=== PATIENT | female | born 1960 | race Caucasian/White ===

== ENCOUNTER 2018-10-09 15:02 | Emergency (ER) | payer OTHER ==
[2018-10-09] MEDS ORDERED: ASPIRIN 81 MG TABLET, CHEWABLE PO ONE (15:28)
--- NOTE | 2018-10-09 15:29 | ER Document Report ---
ED Medical Screen (RME) - General Chief Complaint: Arm Pain Stated Complaint: NECK PAIN Time Seen by Provider: 10/09/18 15:25 Primary Care Provider: LINDA LOYD MD [Primary Care Provider] - Follow up as needed Notes: 58 years old female with a history of coronary artery disease, stent placed in the middle of the right RCA, presents today with right arm numbness and tingling sensation right side of the neck tingling sensation achiness. Since yesterday. She is still smoking TRAVEL OUTSIDE OF THE [place] IN LAST 30 DAYS: No - Related Data Allergies/Adverse Reactions: Penicillins Allergy (Verified 10/09/18 15:03) Past Medical History - Past Medical History Cardiac Medical History: Reports: Hx Hypertension GI Medical History: Reports: Hx Gastroesophageal Reflux Disease Psychiatric Medical History: Denies: Hx Depression Physical Exam - Vital signs Vitals: Temp Pulse Resp BP Pulse Ox 97.9 F 77 17 145/84 H 100 10/09/18 15:17 10/09/18 15:17 10/09/18 15:17 10/09/18 15:17 10/09/18 15:17 Course - Vital Signs Vital signs: Temp Pulse Resp BP Pulse Ox 97.9 F 77 17 145/84 H 100 10/09/18 15:17 10/09/18 15:17 10/09/18 15:17 10/09/18 15:17 10/09/18 15:17 Doctor's Discharge - Discharge Referrals: LINDA LOYD MD [Primary Care Provider] - Follow up as needed
--- NOTE | 2018-10-09 16:05 | RADIOLOGY REPORT (SQ) ---
EXAM DESCRIPTION: CHEST SINGLE VIEW COMPLETED DATE/TIME: 10/09/2018 3:54 pm REASON FOR STUDY: Coronary artery disease chest pain COMPARISON: 02/16/2016 EXAM PARAMETERS: NUMBER OF VIEWS: One view. TECHNIQUE: Single frontal radiographic view of the chest acquired. RADIATION DOSE: NA LIMITATIONS: None. FINDINGS: LUNGS AND PLEURA: No opacities, masses or pneumothorax. No pleural effusion. MEDIASTINUM AND HILAR STRUCTURES: No masses. Contour normal. HEART AND VASCULAR STRUCTURES: Heart normal in size. Normal vasculature. BONES: No acute findings. HARDWARE: None in the chest. OTHER: No other significant finding. IMPRESSION: 1. No significant interval changes since the prior examination dated 02/16/2016. No acu te findings. TECHNICAL DOCUMENTATION: JOB ID: [id number] [employer]- All Rights Reserved Reading location - IP/workstation name: [email or web address]
[2018-10-09 16:29] LABS: ABSOLUTE BASOPHILS # (AUTO) 0.1 10^3/uL (0.0-0.2); ABSOLUTE EOSINOPHILS # (AUTO) 0.1 10^3/uL (0.0-0.6); ABSOLUTE LYMPHOCYTES (AUTO) 1.8 10^3/uL (0.5-4.7); ABSOLUTE MONOCYTES (AUTO) 0.4 10^3/uL (0.1-1.4); ABSOLUTE NEUT (AUTO) 4.6 10^3/uL (1.7-8.2); BASOPHILS % (AUTO) 0.9 % (0-2); EOSINOPHILS % (AUTO) 1.9 % (0-6); HEMATOCRIT 35.3 % (36.0-47.0); HEMOGLOBIN 12.8 g/dL (12.0-15.5); LYMPHOCYTES % (AUTO) 25.9 % (13-45); MEAN CORPUSCULAR HEMOGLOBIN 32.2 pg (27.0-33.4); MEAN CORPUSCULAR HGB CONC 36.3 g/dL (32.0-36.0); MEAN CORPUSCULAR VOLUME 89 fl (80-97); MONOCYTES % (AUTO) 5.7 % (3-13); PLATELET COUNT 243 10^3/uL (150-450); RED BLOOD COUNT 3.98 10^6/uL (3.72-5.28); RED CELL DISTRIBUTION WIDTH 12.8 % (11.5-14.0); SEGMENTED NEUTROPHILS % (AUTO) 65.6 % (42-78); TOTAL CELLS COUNTED % (AUTO) 100 %
--- NOTE | 2018-10-09 16:30 | ER Document Report ---
ED General - General TRAVEL OUTSIDE OF THE [place] IN LAST 30 DAYS: No <BENI MUÑOZ - Last Filed: 10/09/18 18:07> <EMERITAFRANCATOPHER - Last Filed: 10/09/18 19:48> - General Chief Complaint: Arm Pain Stated Complaint: ARM PAIN Time Seen by Provider: 10/09/18 15:25 Primary Care Provider: LINDA LOYD MD [Primary Care Provider] - Follow up as needed ARLENE GUDINO MD [ACTIVE STAFF] - Follow up as needed - [facility] Notes: Patient is a 58-year-old female with a history of coronary artery disease and stent placement in 2016, hypertension who presents to the emergency department complaining of having an episode of right neck and right arm pain that she noticed yesterday and was then intermittent through this morning, since resolved. Patient states that she had a similar presentation of pain when she had her heart attack, but had associated chest pain as well at that time which she does not have today. She has been eating and drinking without difficulty. She does not recall any injury. She is urinating normally and having normal b owel movements. She is able to ambulate without any worsening pain or dyspnea on exertion. She has no shortness of breath associated. No other concerns or complaints at this time. Denies any headache, fever, head injury, URI, sore throat, chest pain, palpitations, syncope, cough, shortness of breath, wheeze, dyspnea, abdominal pain, nausea/vomiting/diarrhea, urinary retention, dysuria, hematuria, loss of control of bowel or bladder, numbness/tingling, saddle anesthesia, muscle paralysis/weakness, or rash. (BENI MUÑOZ) - Related Data Allergies/Adverse Reactions: Penicillins Allergy (Verified 10/09/18 15:03) Past Medical History - Social History Smoking Status: Current Every Day Smoker Chew tobacco use (# tins/day): No Frequency of alcohol use: None Drug Abuse: None Family History: Hyperlipidemia, Hypertension Patient has suicidal ideation: No Patient has homicidal ideation: No - Past Medical History Cardiac Medical History: Reports: Hx Heart Attack, Hx Hypercholesterolemia, Hx Hypertension Renal/ Medical History: Denies: Hx Peritoneal Dialysis GI Medical History: Reports: Hx Gastroesophageal Reflux Disease Psychiatric Medical History: Denies: Hx Depression Past Surgical History: Reports: Hx Cardiac Surgery - stent placement, Hx Tubal Ligation <BENI MUÑOZ - Last Filed: 10/09/18 18:07> Review of Systems - Review of Systems -: Yes All other systems reviewed and negative <BENI MUÑOZ - Last Filed: 10/09/18 18:07> Physical Exam <BENI MUÑOZ - Last Filed: 10/09/18 18:07> - Vital signs Vitals: Temp Pulse Resp BP Pulse Ox 97.9 F 77 17 145/84 H 100 10/09/18 15:17 10/09/18 15:17 10/09/18 15:17 10/09/18 15:17 10/09/18 15:17 - Notes Notes: PHYSICAL EXAMINATION: GENERAL: Well-appearing, well-nourished and in no acute distress. A&Ox4. Answers questions appropriately. Laughing and talkative HEAD: Atraumatic, normocephalic. EYES: Pupils equal round and reactive to light, extraocular movements intact, sclera anicteric, conjunctiva are normal. ENT: Nares patent and without discharge. oropharynx clear without exudates. No tonsilar hypertrophy or erythema. Moist mucous membranes. NECK: Normal range of motion, supple without lymphadenopathy. Spurling negative. No midline tenderness. LUNGS: Breath sounds clear to auscultation bilaterally and equal. No wheezes rales or rhonchi. HEART: Regular rate and rhythm without murmurs, rubs, gallops. ABDOMEN: Soft, nontender, nondistended abdomen. No guarding, no rebound. No masses appreciated. Normal bowel sounds present. No CVA tenderness bilaterally. Musculoskeletal: Rt UE: FROM to passive/active. Strength 5+/5. N/V intact distal. No palpable tenderness. LE's: Ward neg. No asymmetry to LE's. Extremities: No cyanosis, clubbing, or edema b/l. Peripheral pulses 2+. Capillary refill less than 3 seconds. NEUROLOGICAL: Normal speech, normal gait. Cranial nerves grossly intact PSYCH: Normal mood, normal affect. SKIN: Warm, Dry, normal turgor, no rashes or lesions noted. (BENI MUÑOZ) Course - Laboratory Result Diagrams: 10/09/18 16:20 10/09/18 16:20 <BENI MUÑOZ - Last Filed: 10/09/18 18:07> - Laboratory Result Diagrams: 10/09/18 16:20 10/09/18 16:20 <TOPHER CONTEH - Last Filed: 10/09/18 19:48> - Re-evaluation Re-evalutation: Patient is an afebrile, well-hydrated 58-year-old female who presents to the ED with rt arm/neck pain, currently resolved. Vitals are acceptable without any significant tachycardia, tachypnea, or hypoxia. PE is otherwise unremarkable. Patient is nontoxic-appearing and is tolerating p.o. without any difficulties. Pt is currently asymptomatic and has been since this AM. CBC, CMP, EKG/cardiac enzymes, chest x-ray are all unremarkable for any acute pathology. Patient has a heart score of 3, Wells score of 0. Patient never had any chest pain, dyspnea, or shortness of breath. 2nd Trop pending. Patient's current presentation (w. 2nd trop pending) and symptomatology creates low suspicion for ACS, PE, pneumothorax, pericarditis, dissection, respiratory compromise, severe dehydration, sepsis, meningitis, or other systemic emergent condition at this time. Patient is aware that this condition can change from initial presentation and she needs to monitor symptoms closely and seek medical attention for any acute changes. Pt is feeling better and would like to go home, but is willing to stay for the 2nd troponin. Discharge pending 2nd trop: Recommend conservative measures for symptoms. Recheck with your PCM in 2-3 days . Consider consult with Cardiology. Return to the ED with any worsening/concerning symptoms otherwise as reviewed in discharge. Patient is in agreement. Topher LAGUNAS will wait for the 2nd troponin and dispo accordingly at that time. (BENI MUÑOZ) 10/09/18 19:45 Patient re-evaluated. No current symptoms. Second troponin negative. Atypical symptoms without any chest pain. Vital signs on monitoring unremarkable. Discharged with followup instructions and return precautions. Patient states satisfaction and agreement. (TOPHER CONTEH) - Vital Signs Vital signs: Temp Pulse Resp BP Pulse Ox 97.9 F 77 19 105/85 100 10/09/18 15:17 10/09/18 15:17 10/09/18 19:01 10/09/18 19:01 10/09/18 19:01 - Laboratory Laboratory results interpreted by me: 10/09/18 10/09/18 16:20 16:20 Hct 35.3 L MCHC 36.3 H Glucose 173 H AST 45 H Discharge <BENI MUÑOZ - Last Filed: 10/09/18 18:07> <TOPHER CONTEH - Last Filed: 10/09/18 19:48> - Discharge Clinical Impression: Right arm pain Condition: Stable Additional Instructions: Maintain adequate fluid and food intake Take home medications as directed Healthy diet Monitor blood pressure daily and keep a log Monitor symptoms for any acute changes Recheck with your PCM in 2-3 days Consider a follow-up with cardiology Return to the ED with any worsening symptoms and/or development of fever, headache, chest pain, palpitations, syncope, shortness of breath, trouble breathing, abdominal pain, n/v/d, blood in stool/urine, loss of control of bowel/bladder, urinary retention, muscle weakness/paralysis, numbness/tingling, or other worsening symptoms that are concerning to you. Referrals: LINDA LOYD MD [Primary Care Provider] - Follow up as needed ARLENE GUDINO MD [ACTIVE STAFF] - Follow up as needed
[2018-10-09 16:49] LABS: ALANINE AMINOTRANSFERASE 39 U/L (9-52); ALBUMIN 4.8 g/dL (3.5-5.0); ALKALINE PHOSPHATASE 99 U/L (38-126); ANION GAP 14 (5-19); ASPARTATE AMINO TRANSFERASE 45 U/L (14-36); BILIRUBIN,DIRECT 0.4 mg/dL (0.0-0.4); BILIRUBIN,TOTAL 0.5 mg/dL (0.2-1.3); BLOOD UREA NITROGEN 17 mg/dL (7-20); CALCIUM 9.4 mg/dL (8.4-10.2); CARBON DIOXIDE 25 mmol/L (22-30); CHLORIDE 101 mmol/L (98-107); CREATINE KINASE 101 U/L (30-135); GLUCOSE 173 mg/dL (75-110); POTASSIUM 3.8 mmol/L (3.6-5.0); SODIUM 140.4 mmol/L (137-145); TOTAL PROTEIN 7.9 g/dL (6.3-8.2)
[2018-10-09 17:01] LABS: CREATINE KINASE MB 1.29 ng/mL (<4.55)
[2018-10-09 17:02] LABS: TROPONIN I < 0.012 ng/mL
[2018-10-09 17:50] LABS: ALCOHOL < 10 mg/dL (NONE DETECTED)
[2018-10-09 19:57] VITALS: BP 109/70
--- NOTE | 2018-10-09 22:12 | EKG REPORT ---
SEVERITY:- NORMAL ECG - SINUS RHYTHM : Confirmed by: Sully Bennett MD 09-Oct-2018 22:11:22
== END 2018-10-09 19:57 | disposition home or self-care (01) ==
LOC: ER 15:02
DX: M79.601 Pain in right arm (principal); M54.2 Cervicalgia; I10 Essential (primary) hypertension; I25.10 Atherosclerotic heart disease of native coronary artery without angina pectoris; Z95.5 Presence of coronary angioplasty implant and graft; I25.2 Old myocardial infarction; F17.200 Nicotine dependence, unspecified, uncomplicated; Z88.0 Allergy status to penicillin
CPT/HCPCS: 36415; 71045; 80053; 80307; 82550; 82553; 84484; 85025; 93005; 93010; 99284

== ENCOUNTER 2020-08-22 06:07 | Emergency (ER) | payer OTHER ==
[2020-08-22] MEDS ORDERED: METOPROLOL TARTRATE PF/INJ 5 MG/5 ML SDV IV ONE (10:33)
[2020-08-22] MEDS ORDERED: LORAZEPAM INJ 2 MG/1 ML VIAL IV ONE (10:33)
[2020-08-22 10:49] LABS: ABSOLUTE EOSINOPHILS # (AUTO) 0.2 10^3/uL (0.0-0.6); ABSOLUTE LYMPHOCYTES (AUTO) 2.2 10^3/uL (0.5-4.7); ABSOLUTE MONOCYTES (AUTO) 0.4 10^3/uL (0.1-1.4); ABSOLUTE NEUT (AUTO) 3.2 10^3/uL (1.7-8.2); BASOPHILS % (AUTO) 0.6 % (0-2); EOSINOPHILS % (AUTO) 2.5 % (0-6); HEMATOCRIT 35.4 % (36.0-47.0); HEMOGLOBIN 12.3 g/dL (12.0-15.5); LYMPHOCYTES % (AUTO) 37.3 % (13-45); MEAN CORPUSCULAR HEMOGLOBIN 30.3 pg (27.0-33.4); MEAN CORPUSCULAR HGB CONC 34.9 g/dL (32.0-36.0); MEAN CORPUSCULAR VOLUME 87 fl (80-97); MONOCYTES % (AUTO) 6.7 % (3-13); PLATELET COUNT 204 10^3/uL (150-450); RED BLOOD COUNT 4.08 10^6/uL (3.72-5.28); RED CELL DISTRIBUTION WIDTH 13.6 % (11.5-14.0); SEGMENTED NEUTROPHILS % (AUTO) 52.9 % (42-78); TOTAL CELLS COUNTED % (AUTO) 100 %
--- NOTE | 2020-08-22 10:55 | RADIOLOGY REPORT (SQ) ---
EXAM DESCRIPTION: CHEST SINGLE VIEW IMAGES COMPLETED DATE/TIME: 08/22/2020 10:46 am REASON FOR STUDY: Elevated blood pressure, numbness COMPARISON: None. EXAM PARAMETERS: NUMBER OF VIEWS: One view. TECHNIQUE: Single frontal radiographic view of the chest acquired. RADIATION DOSE: NA LIMITATIONS: None. FINDINGS: LUNGS AND PLEURA: No opacities, masses or pneumothorax. No pleural effusion. Hyperinflati on. MEDIASTINUM AND HILAR STRUCTURES: No masses. Contour normal. HEART AND VASCULAR STRUCTURES: Heart normal in size. Normal vasculature. BONES: No acute findings. HARDWARE: None in the chest. OTHER: No other significant finding. IMPRESSION: No evidence of acute cardiopulmonary process. TECHNICAL DOCUMENTATION: JOB ID: [id number] 2010 [employer]- All Rights Reserved Reading location - IP/workstation name: [email or web address]
--- NOTE | 2020-08-22 11:03 | ER Document Report ---
Entered by KEITH SUMNER SCRIBE 08/22/20 1020 Acting as scribe for:ZIYAD GROVE MD ED General - General Chief Complaint: S/S of Possible Stroke Stated Complaint: POSSIBLE STROKE Time Seen by Provider: 08/22/20 10:17 Primary Care Provider: LINDA LOYD MD [NO LOCAL MD] - Follow up in 3-5 days Mode of Arrival: Ambulatory Information source: Patient Notes: This 60 year old female patient with a history of hypertension, hyperlipidemia, CAD s/p stent placement in 2016, GERD, and anxiety presents to the ED today for evaluation of a numbness/tingling sensation to all of her fingertips and toes bilaterally that started a few days ago. Patient states that the numbness and tingling is worse on the left side and it feels like when you sit too long or the extremity falls asleep. She states that she has to move around in order to relieve the discomfort. Denies similar symptoms in the past. She is also complaining of some nausea. She mentions that she did not take her blood pressure medications this morning. Her PCP is Dr. Loyd [facility]. TRAVEL OUTSIDE OF THE [place] IN LAST 30 DAYS: No - Related Data Allergies/Adverse Reactions: Penicillins Allergy (Verified 10/09/18 15:03) Past Medical History - General Information source: Patient, [facility] Records - Social History Smoking Status: Current Every Day Smoker Cigarette use (# per day): Yes - x5-6 cigarettes per day Chew tobacco use (# tins/day): No Smoking Education Provided: No Frequency of alcohol use: Occasional Drug Abuse: None Family History: Reviewed & Not Pertinent, Hyperlipidemia, Hypertension - Past Medical History Cardiac Medical History: Reports: Hx Coronary Artery Disease, Hx Heart Attack, Hx Hypercholesterolemia, Hx Hypertension GI Medical History: Reports: Hx Gastroesophageal Reflux Disease Psychiatric Medical History: Reports: Hx Anxiety Past Surgical History: Reports: Hx Coronary Stent - x1 in 2016 at [facility], Hx Tubal Ligation Review of Systems - Review of Systems Constitutional: No symptoms reported EENT: No symptoms reported Cardiovascular: No symptoms reported Respiratory: No symptoms reported Gastrointestinal: See HPI, Nausea Genitourinary: No symptoms reported Female Genitourinary: No symptoms reported Musculoskeletal: No symptoms reported Skin: No symptoms reported Hematologic/Lymphatic: No symptoms reported Neurological/Psychological: See HPI, Numbness, Tingling -: Yes All other systems reviewed and negative Physical Exam - Vital signs Vitals: Temp Pulse Resp BP Pulse Ox 98.3 F 92 23 H 196/105 H 99 08/22/20 06:16 08/22/20 06:16 08/22/20 06:16 08/22/20 06:16 08/22/20 06:16 Interpretation: Normal - General General appearance: Alert In distress: None - HEENT Head: Normocephalic, Atraumatic Eyes: Normal Pupils: PERRL - Respiratory Respiratory status: No respiratory distress Chest status: Nontender Breath sounds: Normal Chest palpation: Normal - Cardiovascular Rhythm: Regular Heart sounds: Normal auscultation Murmur: Yes Systolic murmur grade 1-6: 2 - Abdominal Inspection: Normal Distension: No distension Bowel sounds: Normal Tenderness: Nontender Organomegaly: No organomegaly - Back Back: Normal, Nontender - Extremities General upper extremity: Normal inspection General lower extremity: Normal inspection. No: Edema - Neurological Neuro grossly intact: Yes Cognition: Normal Orientation: AAOx4 [place] Coma Scale Eye Opening: Spontaneous Isabel Coma Scale Verbal: Oriented [place] Coma Scale Motor: Obeys Commands Isabel Coma Scale Total: 15 Speech: Normal, Other - No speech or thought problems Additional motor exam normals: No: Weakness - No focal weakness - Psychological Associated symptoms: Normal affect, Normal mood - Skin Skin Temperature: Warm Skin Moisture: Dry Skin Color: Normal Course - Re-evaluation Re-evalutation: 08/22/20 14:57 There is no clear explanation for her severe electrolyte abnormalities. The omeprazole could be a culprit. The electrolyte abnormalities could be contributing to the numbness she is complaining of. See the discharge instructions for the recommendations and plan. - Vital Signs Vital signs: Temp Pulse Resp BP Pulse Ox 98.3 F 92 21 H 159/97 H 98 08/22/20 06:16 08/22/20 06:16 08/22/20 11:00 08/22/20 10:45 08/22/20 11:00 - Laboratory Results Result Diagrams: 08/22/20 06:33 08/22/20 06:33 Laboratory Results Interpreted: 08/22/20 08/22/20 08/22/20 06:33 06:33 06:33 Hct 35.4 L Potassium 3.0 L* Chloride 97 L Carbon Dioxide 33 H Glucose 143 H Calcium 7.7 L Magnesium 0.8 L* AST 42 H Creatine Kinase 170 H Critical Laboratory Results Reviewed: Yes Attending or Supervising Physician who Reviewed Labs: ZIYAD GROVE - Low potassium, calcium, magnesium - Radiology Results Radiology Results Interpreted: 08/22/20 14:50 No acute cardiopulmonary process seen on chest x-ray. Critical Radiology Results Reviewed: No Critical Results - EKG Interpretation by Me EKG shows normal: Sinus rhythm, [place], Intervals, QRS Complexes, ST-T Waves Rate: Normal - 71 Rhythm: NSR When compared to previous EKG there are: No significant change Discharge - Discharge Clinical Impression: Hypokalemia, Hypocalcemia, Hypomagnesemia, Anxiety, Paresthesias Condition: Stable Disposition: HOME, SELF-CARE Additional Instructions: You were found to have significant electrolyte abnormalities today. Your potassium, calcium, and magnesium were all quite low. These mineral deficiencies might be related to the numbness you have been feeling. Take the Mag-Ox as prescribed. Increase potassium in your diet by eating bananas every day. Increase calcium in your diet with dairy products. Take a good multivitamin with zinc every day. Stop taking the omeprazole for now and take eeta-hom-refrtlk Pepcid for heartburn. Take copies of your lab work with you to follow-up with your primary care provider sometime in the next several days. RETURN TO THE EMERGENCY ROOM IF ANY NEW OR WORSENING SYMPTOMS. Prescriptions: Magnesium Oxide [Mag-Ox 400 mg Tablet] 400 mg PO BID #30 tab Referrals: LINDA LOYD MD [NO LOCAL MD] - Follow up in 3-5 days I personally performed the services described in the documentation, reviewed and edited the documentation which was dictated to the scribe in my presence, and it accurately records my words and actions.
[2020-08-22 11:06] LABS: ALBUMIN 4.5 g/dL (3.5-5.0); ALKALINE PHOSPHATASE 110 U/L (38-126); ANION GAP 11 (5-19); ASPARTATE AMINO TRANSFERASE 42 U/L (14-36); BILIRUBIN,DIRECT 0.3 mg/dL (0.0-0.4); BILIRUBIN,TOTAL 0.7 mg/dL (0.2-1.3); BLOOD UREA NITROGEN 13 mg/dL (7-20); CALCIUM 7.7 mg/dL (8.4-10.2); CARBON DIOXIDE 33 mmol/L (22-30); CHLORIDE 97 mmol/L (98-107); CREATINE KINASE 170 U/L (30-135); GLUCOSE 143 mg/dL (75-110); TOTAL PROTEIN 7.8 g/dL (6.3-8.2)
[2020-08-22] MEDS ORDERED: NORMAL SALINE 1000 ML 1,000 ML IV ONE (11:20)
[2020-08-22] MEDS: POTASSI CL 20 MEQ/50 ML RIDER 20 MEQ/50 ML RTUPB IV SCH ×2 (11:44→14:27)
[2020-08-22 12:32] LABS: APPEARANCE,URINE CLEAR; BILIRUBIN,URINE NEGATIVE (NEGATIVE); COLOR,URINE STRAW; GLUCOSE, URINE NEGATIVE (NEGATIVE); KETONES,URINE NEGATIVE (NEGATIVE); LEUKOCYTE ESTERASE,URINE NEGATIVE (NEGATIVE); NITRITE,URINE NEGATIVE (NEGATIVE); PROTEIN,URINE NEGATIVE (NEGATIVE); URINE SPECIFIC GRAVITY 1.005; UROBILINOGEN,URINE NEGATIVE mg/dL (<2.0)
--- NOTE | 2020-08-22 12:43 | EKG REPORT ---
SEVERITY:- BORDERLINE ECG - SINUS RHYTHM BORDERLINE INFERIOR Q WAVES : Confirmed by: Elie Mckenzie MD 22-Aug-2020 12:43:09
[2020-08-22] MEDS ORDERED: CALCIUM GLUCONATE 1000 MG/10 ML INJ IV ONE (12:59)
[2020-08-22] MEDS ORDERED: CALCIUM GLUCONATE 1 GM/NS 50 ML RTU IV ONE (14:00)
[2020-08-22 15:51] VITALS: BP 178/107
[2020-08-22] MEDS: MAGNESIUM SULFATE/D5W 1 GM/100 ML RTUPB IV SCH ×2 (16:02→16:45)
== END 2020-08-22 16:47 | disposition home or self-care (01) ==
LOC: ER 06:07
DX: E87.6 Hypokalemia (principal); E83.42 Hypomagnesemia; E83.51 Hypocalcemia; R20.0 Anesthesia of skin; R20.2 Paresthesia of skin; F41.9 Anxiety disorder, unspecified; F17.210 Nicotine dependence, cigarettes, uncomplicated; I10 Essential (primary) hypertension; E78.5 Hyperlipidemia, unspecified; I25.10 Atherosclerotic heart disease of native coronary artery without angina pectoris; Z88.0 Allergy status to penicillin; Z98.51 Tubal ligation status
CPT/HCPCS: 93005; 96376; 99285; 96361; 96375; 96365; 36415; 82550; 83735; 85025; 80053; 81001; 84484; 71045; 93010; J3490; J2060; J3475; J3480; J7030; J0610